=== PATIENT | female | born 1940 | race Caucasian/White ===

== ENCOUNTER → 2017-03-18 | Day surgery (SDC) | payer MEDICARE, OTHER ==
[~2017-03-18] VITALS: Ht 162.6 cm; Wt 74.8 kg
[~2017-03-18] MED LIST: ACETAMINOPHEN 325 MG TAB PO PRN; ASPI1TAB PO; AcetaZOLAMIDE 500 MG ER CAP PO ONE; BENT10CA PO; BSS with VANC/TOB/EPI for EYE CASES IR ONE; CALCTAB29 PO; CEFUROXIME 1MG/0.1ML INTRACAMERAL INJ As Ordered ONE; CYCLOPENTOLATE 2% OPHTH SOLN 2ML BTL OS ONE; DORZ2OPD OS; HEALON DUET (HEALON 10MG/ML 0.55ML & HEALON ENDOCOAT 30MG/ML 0.85ML) As Ordered ONE; ISTA0.5S OD; KETOROLAC 0.5% OPHTH SOLN OS ONE; LEVO100T5 PO; LIDOCAINE 1% SDV 5 ML VIAL As Ordered ONE; LIDOCAINE 4% INJ 5 ML AMP OU ONE; LR 500 ML IV SCH; MIDAZOLAM INJ 2 MG/2 ML VIAL (J2250) As Ordered ONE; MOXIFLOXACIN IN BSS 0.25MG/0.25ML INTRACAMERAL INJ (OR EYE ONLY)(J2280) As Ordered ONE; OFLOXACIN 0.3 % (OCUFLOX) OPTH SOL 5ML OS ONE; PARO15TA PO; PHENYLEPHRINE 2.5% OPHTH SOL 2ML OS ONE; POVIDONE-IODINE 5% OPHTH PREP SOL 30ML As Ordered ONE; PROPARACAINE 0.5% OPHTH SOL 15ML OS PRN; TRAV04OPD OU; TRIAMCINOLONE PRES FR 40 MG/ML 1ML(TRIESENCE)(OR EYE ONLY)(J3300 PER 1MG) As Ordered ONE; TRIMETHOBENZAMIDE 300 MG CAP PO PRN; TROPICAMIDE 1% OPHTH SOLN 2ML OS ONE; [UNRECOGNIZED DRUG - CODE] OS; fentaNYL 100 MCG/2 ML INJECTION (J3010) As Ordered ONE
[2017-03-18 10:15] VITALS: BP 161/75
--- NOTE | 2017-03-26 11:47 | RO ---
DATE OF PROCEDURE: 03/18/2017 PREPROCEDURE DIAGNOSIS: Cataract of left eye. POSTPROCEDURE DIAGNOSIS: Cataract of left eye. PROCEDURE: Femtosecond laser and phacoemulsification of the intraocular lens with lens implantation left eye. Intraocular lens power used was PCB00, 16 diopter. SURGEON: Brenden Gunderson MD PITCH GATHERER: None. ANESTHESIA: Local IV standby. FINDINGS: Cataract of left eye. COMPLICATIONS: None. DESCRIPTION OF PROCEDURE: The patient was brought to the operating room and laid in supine position. A lid speculum was placed, and patient was brought under the femtosecond laser. After the satisfactory placement of the patient interface, primary incision, secondary incision, and arcuate incisions with lens fragmentation was done without any complication per plan. The patients interface was then removed and lid speculum removed. Patient was placed under the microscope. The eye was prepped and draped in a sterile fashion for ophthalmic surgery. Lid speculum was placed. The secondary incision was opened, and EndoCoat was injected into the anterior chamber. The temporal clear corneal incision was then opened and capsulorrhexis removed, followed by hydrodissection. This was followed by phacoemulsification of the lens within the capsular bag. Cortical material was then aspirated, and Healon was injected into the capsular bag. Intraocular lens was then placed. Excess Healon was aspirated. Wound was hydrated. The lid speculum was removed, and patient was returned to the recovery room in stable condition.
== END | disposition home or self-care (01) ==
LOC: M SDC 07:21
PROVIDERS: ATTEND Ophthalmology
DX: H25.9 Unspecified age-related cataract (principal); H40.812 Glaucoma with increased episcleral venous pressure, left eye; E03.9 Hypothyroidism, unspecified; K21.9 Gastro-esophageal reflux disease without esophagitis; Z87.891 Personal history of nicotine dependence; Z79.82 Long term (current) use of aspirin; Z79.899 Other long term (current) drug therapy
CPT/HCPCS: 66183; 66711; 66984; C1783; J2250; J3010; V2632

== ENCOUNTER → 2017-03-25 | Day surgery (SDC) | payer MEDICARE, OTHER ==
[~2017-03-25] VITALS: Ht 162.6 cm; Wt 74.8 kg
[~2017-03-25] MED LIST changes: +AcetaZOLAMIDE 500 MG ER CAP As Ordered ONE; +CYCLOPENTOLATE 2% OPHTH SOLN 2ML BTL OD ONE; -CYCLOPENTOLATE 2% OPHTH SOLN 2ML BTL OS ONE; +KETOROLAC 0.5% OPHTH SOLN OD ONE; -KETOROLAC 0.5% OPHTH SOLN OS ONE; +LR 500 ML IV ONE; -LR 500 ML IV SCH; -MOXIFLOXACIN IN BSS 0.25MG/0.25ML INTRACAMERAL INJ (OR EYE ONLY)(J2280) As Ordered ONE; +OFLOXACIN 0.3 % (OCUFLOX) OPTH SOL 5ML OD ONE; -OFLOXACIN 0.3 % (OCUFLOX) OPTH SOL 5ML OS ONE; +PHENYLEPHRINE 2.5% OPHTH SOL 2ML OD ONE; -PHENYLEPHRINE 2.5% OPHTH SOL 2ML OS ONE; +PROPARACAINE 0.5% OPHTH SOL 15ML OD PRN; -PROPARACAINE 0.5% OPHTH SOL 15ML OS PRN; -TRIAMCINOLONE PRES FR 40 MG/ML 1ML(TRIESENCE)(OR EYE ONLY)(J3300 PER 1MG) As Ordered ONE; +TROPICAMIDE 1% OPHTH SOLN 2ML OD ONE; -TROPICAMIDE 1% OPHTH SOLN 2ML OS ONE
[2017-03-25 12:00] VITALS: BP 146/67
--- NOTE | 2017-03-26 14:38 | RO ---
DATE OF PROCEDURE: 03/25/2017 PREPROCEDURE DIAGNOSES: Glaucoma and cataract right eye. POSTPROCEDURE DIAGNOSES: Glaucoma and cataract right eye. PROCEDURE: Femtosecond laser with phacoemulsification, intraocular lens implantation along with endocyclophotocoagulation and placement of the [place] iStent. Intraocular lens power used was PCB00, 16 diopter. SURGEON: Dr. Brenden Gunderson TELEPHONE SURVEYOR: None. ANESTHESIA: COMPLICATIONS: None. DESCRIPTION OF PROCEDURE: Procedure in detail: Patient was brought to the operating room, laid in supine position, was placed under the femtosecond laser. After adequate patient suction and interface placement, OCT images were reviewed, and laser was activated. Capsulorrhexis lens fragmentation, primary, secondary, and arcuate corneal incisions were made according to plan. Suction was released. Patient was brought to the operating room, laid in supine position. The eye was prepped and draped in a sterile fashion for ophthalmic surgery. Lid speculum was placed. The primary and secondary corneal incisions along with the arcuate incisions were opened and EndoCoat was injected into the anterior chamber. This was followed by removal of the capsulorrhexis and phacoemulsification in a [id number] method within the capsular bag. Cortical material was then aspirated, Healon injection into the capsular bag, intraocular lens placed. Healon was then placed in the ciliary sulcus to visualize the ciliary processes on the video screen with the help of the EndoProbe and endocyclophotocoagulation at 0.25 milliwatts was then done over 280 degrees with good results noted by the shrinking of the ciliary processes. Patient's head was then turned away from the surgeon and microscope turned toward the surgeon, and under high magnification with the help of the goniolens, iStent was placed in the inferonasal quadrant. Good blood reflux was noted. Excess viscoelastic was aspirated, wound was hydrated, intracameral moxifloxacin was given, and patient returned to recovery room in stable condition.
== END | disposition home or self-care (01) ==
LOC: M SDC 08:12
PROVIDERS: ATTEND Ophthalmology
DX: H25.9 Unspecified age-related cataract (principal); H40.811 Glaucoma with increased episcleral venous pressure, right eye; E03.9 Hypothyroidism, unspecified; K21.9 Gastro-esophageal reflux disease without esophagitis; F41.9 Anxiety disorder, unspecified; K58.8 Other irritable bowel syndrome; Z87.891 Personal history of nicotine dependence; Z79.899 Other long term (current) drug therapy; Z79.82 Long term (current) use of aspirin
CPT/HCPCS: 66183; 66711; 66984; C1783; J2250; J3010; V2632

== ENCOUNTER → 2020-08-20 | Outpatient (CLI) | payer MEDICARE, OTHER ==
[~2020-08-20] MED LIST changes: -ACETAMINOPHEN 325 MG TAB PO PRN; -ASPI1TAB PO; +ASPI81TA26 PO; -AcetaZOLAMIDE 500 MG ER CAP As Ordered ONE; -AcetaZOLAMIDE 500 MG ER CAP PO ONE; -BSS with VANC/TOB/EPI for EYE CASES IR ONE; -CEFUROXIME 1MG/0.1ML INTRACAMERAL INJ As Ordered ONE; -CYCLOPENTOLATE 2% OPHTH SOLN 2ML BTL OD ONE; -HEALON DUET (HEALON 10MG/ML 0.55ML & HEALON ENDOCOAT 30MG/ML 0.85ML) As Ordered ONE; -KETOROLAC 0.5% OPHTH SOLN OD ONE; -LIDOCAINE 1% SDV 5 ML VIAL As Ordered ONE; -LIDOCAINE 4% INJ 5 ML AMP OU ONE; -LR 500 ML IV ONE; -MIDAZOLAM INJ 2 MG/2 ML VIAL (J2250) As Ordered ONE; -OFLOXACIN 0.3 % (OCUFLOX) OPTH SOL 5ML OD ONE; -PARO15TA PO; +PARO30TA4 PO; -PHENYLEPHRINE 2.5% OPHTH SOL 2ML OD ONE; -POVIDONE-IODINE 5% OPHTH PREP SOL 30ML As Ordered ONE; -PROPARACAINE 0.5% OPHTH SOL 15ML OD PRN; -TRIMETHOBENZAMIDE 300 MG CAP PO PRN; -TROPICAMIDE 1% OPHTH SOLN 2ML OD ONE; -fentaNYL 100 MCG/2 ML INJECTION (J3010) As Ordered ONE
--- NOTE | 2020-08-21 09:38 | REP ---
INDICATION: LT ANKLE PAIN W/ SWELLING. COMPARISON: None. TECHNIQUE: Multiple sequences are obtained in the axial, coronal and sagittal planes. FINDINGS: The Achilles, anterior tibial, posterior tibial, flexor hallucis longus, flexor digitorum longus and peroneal tendons are all intact without significant tenosynovitis. The anterior and posterior talofibular, calcaneofibular and deltoid ligaments appear intact. There is mild increased signal on T2 weighted images in the plantar tendon at its insertion onto the inferior calcaneus suggesting mild tendinitis at this location.. Sinus tarsi demonstrates mild fluid but otherwise appears unremarkable. No ganglion cyst is seen. There is normal amount of joint fluid. The cartilaginous surfaces are smooth. No osteochondral defect is seen at the tibiotalar joint. There is no bone marrow edema or occult fracture. There is an os trigonum present. There is moderate diffuse nonspecific subcutaneous soft tissue edema present. IMPRESSION: Mild tendinitis of the plantar tendon at its insertion onto the inferior calcaneus. No tendon or ligament tear. Moderate superficial soft tissue edema. Mild fluid in the sinus tarsi which otherwise appears unremarkable. <Electronically signed by Mitchell Bledsoe > 08/21/20 0945
== END ==
LOC: M RAD 16:33
PROVIDERS: ATTEND Podiatrist
DX: M25.572 Pain in left ankle and joints of left foot (principal)